=== PATIENT | male | born 1965 | race Caucasian/White ===

== ENCOUNTER 2023-04-10 17:00 | Emergency (ER) | payer OTHER ==
[~2023-04-10] VITALS: Ht 175.3 cm; Wt 73.0 kg
[2023-04-10 17:13] VITALS: O2SAT 99
[2023-04-10] MEDS ORDERED: [UNRECOGNIZED DRUG - OTHER] (17:20)
[2023-04-10] MEDS ORDERED: SODIUM CHLORIDE 0.9% 500 ML IV ONE (17:30)
[2023-04-10 17:44] VITALS: TEMP 98.2
[2023-04-10 18:25] LABS: BASOPHILS % 1.1 % (0.0-2.0); EOSINOPHILS % 2.6 % (0.0-5.0); HEMATOCRIT. 33.4 % (42.0-52.0); HEMOGLOBIN. 11.1 g/dL (14.0-18.0); MEAN CORPUSCULAR HEMOGLOBIN 28.8 pg (28.0-32.0); MEAN CORPUSCULAR HGB CONC 33.2 g/dL (31.0-37.0); MEAN CORPUSCULAR VOLUME 86.6 fL (80.0-94.0); MONOCYTES % 8.4 % (2.0-8.0); NEUTROPHILS % 67.9 % (40.0-76.0); PLATELET 198 x1000/uL (130-400); RED BLOOD CELL COUNT 3.85 mill/uL (4.7-6.1); RED CELL DISTRIBUTION WIDTH 14.9 % (11.6-14.6); WHITE BLOOD COUNT 5.8 x1000/uL (4.5-11.0)
[2023-04-10 18:35] LABS: CHLORIDE 112 mEq/L (98-107); INDEX HEMOLYSI 1 (1-3); INDEX ICTERIC 1 (1-4); INDEX LIPEMIC 1 (1-3); POTASSIUM 3.8 mEq/L (3.5-5.1); SODIUM 141 mEq/L (136-145)
[2023-04-10 18:47] LABS: ALANINE AMINOTRANSFERASE 45 IU/L (13-61); ALBUMIN 3.2 g/dL (3.4-5.0); ASPARTATE AMINOTRANSFERASE 50 IU/L (15-37); BILIRUBIN TOTAL 0.8 mg/dL (0.1-1.0); CALCIUM 8.3 mg/dL (8.5-10.1); CARBON DIOXIDE 25 mEq/L (21-32); CREATININE 1.3 mg/dL (0.6-1.3); GLUCOSE 139 mg/dL (70-105); PROTEIN TOTAL 6.4 g/dL (6.0-8.3); UREA NITROGEN BLOOD 22 mg/dL (7-21)
[2023-04-10 18:49] LABS: NT PRO B-TYPE NATRIURETIC PEP 9975 pg/mL (5-125); TROPONIN I HIGH SENSITIVITY 342 ng/L (<78)
[2023-04-10] MEDS ORDERED: ASPIRIN 325MG EC TABLET PO NR (19:08)
[2023-04-11 11:00] VITALS: BP 110/62; PULSE 80; RESP 17
== END 2023-04-11 12:12 | disposition left against medical advice (07) ==
LOC: ER 17:00 → UNDOADMIN 20:28 → MICUSO 20:28 → EDBEDREQTM 20:44 → EDBEDREQ 20:44 → UNDODISIN 04-11 12:10
DX: R55 Syncope and collapse (principal); F15.90 Other stimulant use, unspecified, uncomplicated; F17.200 Nicotine dependence, unspecified, uncomplicated; Z53.29 Procedure and treatment not carried out because of patient's decision for other reasons; I10 Essential (primary) hypertension; N52.9 Male erectile dysfunction, unspecified; Z86.711 Personal history of pulmonary embolism; Z95.5 Presence of coronary angioplasty implant and graft
CPT/HCPCS: 80053; 83880; 85025; 85379; 86850; 86900; 86901; 84484; 36415; 71045; 71275; 70450; 93005; 96360; 96361; 99285; Q9967; J7040; Z7610